=== PATIENT | female | born 1980 | race Caucasian/White ===

== ENCOUNTER 2022-10-05 08:17 | Outpatient (CLI) | payer BC, SELFPAY ==
[2022-10-05 13:49] LABS: Cholesterol* 161 mg/dL (90-199)
[2022-10-05 13:50] LABS: Glucose* 105 mg/dL (60-115); HDL Cholesterol* 47 mg/dL (>=50); LDL Cholesterol Calculated 80 mg/dL (<100); Triglycerides* 168 mg/dL (40-149)
[2022-10-06 12:52] LABS: Free T4 Free Thyroxine* 0.84 ng/dL (0.70-1.85)
== END 2022-10-05 08:18 | disposition home or self-care (01) ==
LOC: FBOREF 08:17
PROVIDERS: Visit Provider Physician Assistant
DX: Z13.6 Encounter for screening for cardiovascular disorders (principal); Z13.29 Encounter for screening for other suspected endocrine disorder; Z13.1 Encounter for screening for diabetes mellitus
CPT/HCPCS: 80061; 82947; 84439; 84443

== ENCOUNTER 2023-10-31 09:42 | Outpatient (CLI) | payer BC, SELFPAY | END 2023-10-31 09:43 | disposition home or self-care (01) | PROVIDERS: Visit Provider Obstetrics & Gynecology | DX: Z01.419 Encounter for gynecological examination (general) (routine) without abnormal findings (principal); E03.8 Other specified hypothyroidism | CPT/HCPCS: 84443 ==

== ENCOUNTER 2025-01-23 07:24 | Outpatient (CLI) | payer BC, SELFPAY ==
--- NOTE | 2025-01-23 07:45 | CRLHL7_ITS ---
For Patients: As a result of the Cures Act, medical imaging exams and procedure reports are released immediately into your electronic medical record. You may view this report before your referring provider. If you have questions, please contact your health care provider. DIGITIAL DIAGNOSTIC LEFT BREAST MAMMOGRAM WITH COMPUTER-AIDED DETECTION AND TOMOSYNTHESIS, 01/23/2025 CLINICAL HISTORY: LEFT breast lump. COMPARISON: None. TECHNIQUE: Digital BILATERAL mammogram in 4 projections with computer-aided detection. Tomosynthesis was used in this interpretation. Real-time ultrasound imaging of LEFT breast with imaging documentation. BREAST COMPOSITION: There are scattered areas of fibroglandular density. FINDINGS: 3D CC/MLO BILATERAL mammogram images submitted BILATERALLY. No suspicious mass or architectural distortion. No suspicious calcifications or adenopathy. Targeted LEFT breast ultrasound performed in the area of concern beneath the LEFT nipple. Normal fibroglandular tissue is present. No fluid collection or dilated duct. No solid mass. IMPRESSION: No suspicious findings. No evidence of malignancy or papilloma. RECOMMENDATIONS: Routine screening mammography. A lay language report of this examination will be provided to the patient. BI-RADS Category 1: Negative Dictated by Devin Westfall MD @ 01/23/2025 9:03:42 AM LUKE/andrea DW/Dictated by: Devin Westfall MD @ 01/23/2025 9:03:00 AM (Electronically Signed)
--- NOTE | 2025-01-23 08:15 | CRLHL7_ITS ---
For Patients: As a result of the Cures Act, medical imaging exams and procedure reports are released immediately into your electronic medical record. You may view this report before your referring provider. If you have questions, please contact your health care provider. SEE DIGITAL DIAGNOSTIC LEFT MAMMOGRAM PERFORMED SAME DAY CRL:[email or web address] orona/Dictated by: Devin Westfall MD @ 01/23/2025 9:03:00 AM (Electronically Signed)
== END 2025-01-23 07:25 | disposition home or self-care (01) ==
LOC: MAMMO 07:24
PROVIDERS: Visit Provider Obstetrics & Gynecology
DX: N63.20 Unspecified lump in the left breast, unspecified quadrant (principal); R92.8 Other abnormal and inconclusive findings on diagnostic imaging of breast
CPT/HCPCS: 76642; 77066; G0279